=== PATIENT | female | born 2000 | race Two or more races ===

== ENCOUNTER 2019-02-05 19:53 | Outpatient (CLI) | payer OTHER ==
[2019-02-05 20:48] LABS: APPEARANCE,URINE CLEAR; BILIRUBIN,URINE NEGATIVE (NEGATIVE); COLOR,URINE YELLOW; GLUCOSE, URINE NEGATIVE (NEGATIVE); KETONES,URINE NEGATIVE (NEGATIVE); LEUKOCYTE ESTERASE,URINE NEGATIVE (NEGATIVE); NITRITE,URINE NEGATIVE (NEGATIVE); PROTEIN,URINE NEGATIVE (NEGATIVE); URINE SPECIFIC GRAVITY 1.005; UROBILINOGEN,URINE NEGATIVE mg/dL (<2.0)
[2019-02-05 21:07] LABS: URINE AMPHETAMINES SCREEN NEGATIVE; URINE BARBITURATES SCREEN NEGATIVE; URINE BENZODIAZEPINES SCREEN NEGATIVE; URINE COCAINE SCREEN NEGATIVE; URINE MARIJUANA (THC) SCREEN NEGATIVE; URINE METHADONE SCREEN NEGATIVE; URINE PHENCYCLIDINE SCREEN NEGATIVE
--- NOTE | 2019-02-05 21:44 | Non Stress Test Report ---
Non Stress Test Datetime Report Generated by CPN: 02/05/2019 21:43 DEMOGRAPHIC EGA NST: 39.6 INDICATION Indication for Study (NST) Other: lc [employer] deversion URINE RESULTS Urine Blood - NST: Positive MONITORING Monitor Explained: Monitor Explained; Test Explained; Patient Verbalized Understanding Time on Monitor: 02/05/2019 19:57 Time off Monitor: 02/05/2019 21:39 NST Duration: 102 NST INTERVENTIONS NST Interventions: Reposition Patient Physician Notified NST: Dr Loya BABY A: [id number] BABY A Movement : Present Contraction Frequency : 0 FHR Baseline : 140 Accelerations : 15X15 Decelerations : None Variability : Moderate 6-25bpm NST Review: Meets Criteria for Reactive NST NST Review and Verified By : Kaitlynn Holt RN NST Results: Reactive NST REPORT Report Trigger: Send Report
== END 2019-02-05 21:42 | disposition home or self-care (01) ==
LOC: LC 19:53
PROVIDERS: ATTEND Obstetrics & Gynecology Gynecology
PROC: 4A1HXCZ Monitoring of Products of Conception, Cardiac Rate, External Approach (ICD-10-PCS; principal; 2019-02-05)
DX: O47.1 False labor at or after 37 completed weeks of gestation (principal); Z3A.39 39 weeks gestation of pregnancy
CPT/HCPCS: 59025; 80307; 81005